=== PATIENT | male | born 1945 | race Caucasian/White ===

== ENCOUNTER 2020-09-29 23:44 | Emergency (ER) | payer MEDICARE, SELFPAY ==
--- NOTE | ~2020-09-29 | XR_ITS ---
EXAMINATION: XR chest 2V DATE: 09/30/2020 00:19 INDICATION: Weakness TECHNIQUE: AP and lateral views of the chest are obtained. COMPARISON: 05/20/2005 FINDINGS: The lungs are free of acute opacities. There is no pleural effusion or pneumothorax. The ca rdiomediastinal silhouette is normal. There is mild thoracic spondylosis. IMPRESSION: 1. No acute cardiopulmonary abnormality. Reviewed, dictated and finalized at location A.
[2020-09-29 23:42] VITALS: BP 146/60; PULSE 66; RESP 20; TEMP 38; O2SAT 100
--- NOTE | 2020-09-29 23:51 | ECG_ITS ---
Measurements Intervals [place] Rate: 65 P: 46 NH: 176 QRS: -5 QRSD: 108 T: 28 QT: 375 QTc: 390 Interpretive Statements SINUS RHYTHM BORDERLINE ST-T WAVE ABNORMALITY- INF/LAT LEADS BASELINE WANDER- I, II, AVR, AVF BORDERLINE ECG Electronically Signed On 09-30-2020 8:12:34 CDT by Vazquez Orourke D.O.
--- NOTE | 2020-09-29 23:54 | PC.NURSE ---
Patient's family member states patient has had difficulty with his blood sugars and is confused today. Patient arrives alert to person, place and day.
[2020-09-29 23:56] VITALS: PULSE 64; RESP 18
[2020-09-30] VITALS (13 sets, daily range): BP systolic 143–145; BP diastolic 69–76; PULSE 66–84; RESP 15–22; TEMP 36.9–37.2; O2SAT 98–99
--- NOTE | 2020-09-30 00:09 | PC.NURSE ---
Patient being taken to CT.
[2020-09-30] MEDS: SODIUM CHLORIDE 0.9% IV 1,000 ML 999 ML IV CONT (00:29)
[2020-09-30] MEDS: ACETAMINOPHEN 500 MG TABLET 1000 MG PO (00:29)
[2020-09-30 00:54] LABS: Basophils Percent Auto 0.4 % (0.2-1.2); Eosinophils Absolute Auto 0.9 K/mm3 (0-0.3); Eosinophils Percent Auto 10.4 % (0-4.4); Hematocrit 33.8 % (42.0-52.0); Immature Granulocyte Absolute 0.05 K/mm3 (0.00-0.031); Immature Granulocyte Percent A 0.6 % (0-0.5); Lymphocytes Absolute Auto 0.57 K/mm3 (0.9-3.2); Lymphocytes Percent Auto 6.9 % (18.3-44.2); Mean Corpuscular HGB Conc 32.5 g/dl (32-36); Mean Corpuscular Volume 92.1 fl (80-100); Mean Platelet Volume 11.1 fl (7.4-10.4); Monocytes Absolute Auto 0.9 K/mm3 (0.1-0.6); Monocytes Percent Auto 10.3 % (2.6-8.5); Neutrophils Absolute Auto 5.9 K/mm3 (1.3-6.7); Neutrophils Percent Auto 71.4 % (45.5-73.1); Platelet Count Result 206 k/mm3 (150-375); Red Blood Count 3.67 M/mm3 (4.6-6.20); Red Cell Distribution Width 12.9 % (11.5-14.5); White Blood Count 8.2 K/mm3 (4.5-10.0)
[2020-09-30 01:07] LABS: Anion Gap 11 mmol/L (8-16); Blood Urea Nitrogen 23 mg/dL (9-20); Calcium 8.9 mg/dL (8.4-10.2); Carbon Dioxide 25 mmol/L (22-30); Chloride 102 mmol/L (98-107); Estimated CRCL calculation 66 ml/min; Estimated Glomerular Filt Rate 59; Glucose 96 mg/dL (75-110); Potassium 4.3 mmol/L (3.4-5.0); Sodium 138 mmol/L (137-145)
[2020-09-30 01:23] LABS: Add Urine Microscopic? YES; Appearance Urine Clear (Clear); Bacteria Urine Trace /hpf; Bilirubin Urine Negative (Negative); Color Urine Yellow (Yellow); Glucose Urine UA Negative (Negative); Ketones Urine Negative (Negative); Leukocyte Esterase Ur Trace LEU/UL (Negative); Mucus Urine Rare /lpf; Nitrate Urine Negative (Negative); Protein Urine 1+ mg/dL (Negative); RBC Urine 0-2 /hpf (0-2); Specific Grav Ur 1.014 (1.001-1.035); Squamous Epithelial Cell Urine Rare /hpf (Few); Urobilinogen Urine Negative mg/dL (<2.0)
[2020-09-30 01:24] LABS: Blood Urine Negative (Negative)
--- NOTE | 2020-09-30 02:44 | PC.NURSE ---
Patient stood and ambulated a few steps with assist. Patient's daughter states patient did about the same as he does at home. ERP notified.
--- NOTE | 2020-09-30 02:46 | ED.WEAKNESS ---
HPI - Weakness General Chief complaint: Weakness Stated complaint: weakness Time Seen by Provider: 09/29/20 23:58 History of Present Illness HPI Narrative: Patient is a 75-year-old male who presents ER with weakness. Daughter called an ambulance bring patient here because twice during the day his legs became weak and buckled on him causing him to fall. One point he fell sliding down a wall. Did not strike his head or lose consciousness. Yesterday patient went and had a flu vaccine. Patient is found to be febrile here. She has no complaints of infection. Daughters note she has had a mild cough. No known Covid contacts. He has not left the house with exception to go to the doctor yesterday. 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 He was started on Keflex. Patient still reports prior to arrival here patient was very tired and not able to communicate well. No focal weakness or dysarthria. Related Data Home Medications Medication Instructions Recorded Confirmed ascorbic acid (vitamin C) 1,000 mg 1 gm PO DAILY 11/03/19 05/04/20 tablet aspirin 81 mg tablet,delayed 81 mg PO DAILY 11/03/19 05/04/20 release atorvastatin 20 mg tablet 20 mg PO DAILY 11/03/19 05/04/20 calcium carbonate 600 mg calcium 600 mg PO DAILY 11/03/19 05/04/20 (1,500 mg) tablet cholecalciferol (vitamin D3) 25 1,000 unit PO DAILY 11/03/19 05/04/20 mcg (1,000 unit) capsule digoxin 125 mcg (0.125 mg) tablet 125 mcg PO DAILY 11/03/19 05/04/20 insulin aspart U-100 100 unit/mL 35 unit SUB-Q TID ml 11/03/19 05/04/20 (3 mL) subcutaneous pen insulin glargine U-300 conc 300 114 unit SUB-Q DAILY ml 11/03/19 05/04/20 unit/mL (3 mL) subcutaneous pen metformin 1,000 mg tablet 500 mg PO BID tablet 11/03/19 05/04/20 omega-3 fatty acids 1,000 mg 1,000 mg PO DAILY 11/03/19 05/04/20 capsule ropinirole 0.25 mg tablet 0.25 mg PO ONCE tablet 11/03/19 05/04/20 warfarin 4 mg tablet 4 mg PO DAILY 11/03/19 05/04/20 Allergies Allergy/AdvReac Type Severity Reaction Status Date / Time No Known Allergies Allergy Unknown Verified 09/29/20 23:56 Review of Systems Review of Systems: All systems reviewed & are unremarkable except as noted in HPI and below Constitutional: Constitutional: Denies chills, Reports fever(s) and Reports weakness ENT: Denies nasal congestion and Denies sore throat Respiratory: Respiratory: Reports cough, Denies dyspnea and Denies wheezing Musculoskeletal: Musculoskeletal: Denies arthralgias and Denies joint swelling Comments: Missing toenail left great toe. PMFSH Past Medical History Medical History (Updated 09/30/20 @ 02:53 by Bogdan Mosqueda MD) A-fib Diabetic retinopathy associated with type 2 diabetes mellitus History of CVA (cerebrovascular accident) Hypertension associated with stage 3 chronic kidney disease due to type 2 diabetes mellitus Mixed hyperlipidemia Type 2 diabetes mellitus with diabetic neuropathy, with long-term current use of insulin Surgical History Surgical History (Updated 04/27/20 @ 13:00 by Sabina Carrera MD) History of eye enucleation History of eye removal Hx of tonsillectomy Family History Family History (System 04/27/20 @ 09:08 by Argelia Mejias) Other Diabetes mellitus Family history of Alzheimer's disease Family history of lung disease Hypertension Malignant neoplasm of prostate Social History Social History (System 04/27/20 @ 09:08 by Argelia Mejias) Smoking status: Never smoker Alcohol intake: never Exam Narrative: Exam Narrative: GENERAL: Well-appearing, well-nourished, and in no acute distress. HEAD: Normocephalic, atraumatic. ENT: Mucous membranes moist. CHEST: Clear to auscultation. No respiratory distress. HEART: Regular rate and rhythm. Normal peripheral pulses. ABDOMEN: Soft, nontender, nondistended. EXTREMITIES: Normal range of motion. Left great toe missing toenail. There is slight red
[2020-09-30 02:59] LABS: Glucose Point of Care 103 (65-105)
== END 2020-09-30 03:14 | disposition home or self-care (01) ==
PROVIDERS: Emergency Provider Emergency Medicine; PCP Family Medicine
DX: L03.032 Cellulitis of left toe (principal); E11.319 Type 2 diabetes mellitus with unspecified diabetic retinopathy without macular edema; E11.22 Type 2 diabetes mellitus with diabetic chronic kidney disease; E11.40 Type 2 diabetes mellitus with diabetic neuropathy, unspecified; I12.9 Hypertensive chronic kidney disease with stage 1 through stage 4 chronic kidney disease, or unspecified chronic kidney disease; N18.30 Chronic kidney disease, stage 3 unspecified; Z79.82 Long term (current) use of aspirin; Z79.4 Long term (current) use of insulin; Z79.01 Long term (current) use of anticoagulants; I48.91 Unspecified atrial fibrillation; R94.31 Abnormal electrocardiogram [ECG] [EKG]
CPT/HCPCS: 36415; 71046; 80048; 81001; 85025; 87086; 93005; 96360; 99283; A9270; J7030

== ENCOUNTER 2020-10-12 09:34 | Outpatient (NON) | payer MEDICARE, SELFPAY ==
[2020-10-13 14:52] LABS: SARS-CoV-2 RNA PCR Positive
== END 2020-10-12 09:35 ==
LOC: ANHCOVIDDT 09:36
PROVIDERS: PCP Family Medicine; Visit Provider Physician Assistant Medical
DX: U07.1 COVID-19 (principal)
CPT/HCPCS: 87635; C9803; U0003

== ENCOUNTER 2021-06-27 08:15 | Outpatient (CLI) | payer MEDICARE, SELFPAY ==
--- NOTE | ~2021-06-27 | US_ITS ---
EXAMINATION: US arterial ankle brachial ind DATE: 06/27/2021 08:50 INDICATION: Peripheral vascular disease. TECHNIQUE: Segmental pressures and plethysmographic and Doppler waveforms of the brachial and lower e xtremity arteries were obtained. COMPARISON: None. FINDINGS: Right and left brachial artery pressures of 166 mm Hg and 166 mm Hg, respectively, are concordant (no rmal difference <= 30 mmHg). The right ankle-brachial index is unable to be obtained due to inability to occlude the vessels at th e right ankle. The right great toe-brachial index (TBI) is 0.67 (normal >= 0.65). Arterial Doppler wa veforms are biphasic with brisk systolic upstrokes at both the right dorsalis pedis and posterior tib ial arteries. The left BECKA is unable to be obtained due to inability to occlude the vessels at the left ankle. The left TBI is 0.71. Arterial Doppler waveforms are biphasic with brisk systolic upstrokes at both the l eft posterior tibial and dorsalis pedis arteries. IMPRESSION: 1. No significant arterial occlusive disease to either lower limb with normal bilateral TBI's. Reviewed, dictated and finalized at location A. IMPRESSION: 1. No significant arterial occlusive disease to either lower limb with normal b ilateral TBI's.
== END 2021-06-27 08:16 | disposition home or self-care (01) ==
LOC: ANHIMG 08:19
PROVIDERS: PCP Family Medicine; Visit Provider Family Medicine
DX: I73.9 Peripheral vascular disease, unspecified (principal)
CPT/HCPCS: 93922

== ENCOUNTER 2023-07-24 09:27 | Outpatient (CLI) | payer MEDICARE, SELFPAY ==
--- NOTE | ~2023-07-24 | CT_ITS ---
EXAMINATION: CT abdomen pelvis w con DATE: 07/24/2023 10:05 INDICATION: Abnormal liver serum enzymes TECHNIQUE: Computed tomography (CT) of the abdomen and pelvis was performed with 100 cc Omnipaque 350 intravenous contrast. The dose-length product was 1764.34 mGy-cm. Automated exposure control and ite rative reconstruction technique were employed. COMPARISON: CT dated 09/20/2004. FINDINGS: There is dependent atelectasis. No endobronchial lesions. Heart size normal. There is ather osclerosis of the aorta and coronary arteries. No aneurysm. No lymphadenopathy. Prostate gland is enl arged. Bladder is moderately distended. Fatty infiltration of the liver. Gallbladder is distended. Th e spleen, pancreas, adrenal glands and kidneys are unremarkable. Nonobstructive bowel gas pattern. No free air or free fluid. No lymphadenopathy. No abnormal pelvic masses or fluid collections. Mild ost eoarthritis of the hips. Mild lower thoracic and lumbar spondylosis. IMPRESSION: 1. Fatty infiltration of the liver. 2: Mild gallbladder distention, nonspecific. 3: Enlarged prostate gland with moderate bladder distention, suspicious for bladder outlet obstructi on. Reviewed, dictated and finalized at location L. IMPRESSION: 1. Fatty infiltration of the liver. 2: Mild gallbladder distention, nonspecific. 3: Enlarged prostate gland with moderate bladder distention, suspicious for bl adder outlet obstruction.
[2023-07-24 09:56] LABS: Estimated Glomerular Filt Rate 46
== END 2023-07-24 09:28 | disposition home or self-care (01) ==
PROVIDERS: PCP Family Medicine; Visit Provider Physician Assistant
DX: R74.8 Abnormal levels of other serum enzymes (principal); R10.9 Unspecified abdominal pain; R19.7 Diarrhea, unspecified; K76.0 Fatty (change of) liver, not elsewhere classified; N40.0 Benign prostatic hyperplasia without lower urinary tract symptoms
CPT/HCPCS: 74177; Q9967

== ENCOUNTER 2023-08-27 00:43 | Day surgery (SDC) | payer MEDICARE, SELFPAY ==
[2023-08-21 10:59] VITALS: BMI 40.3
[2023-08-27 09:12] VITALS: BP 135/44; PULSE 63; RESP 20; TEMP 36.3; O2SAT 95
[2023-08-27] MEDS: LACTATED RINGERS 1,000 ML 150 ML IV CONT (09:25)
[2023-08-27 09:27] LABS: Glucose Point of Care 85 mg/dl (65-105)
--- NOTE | 2023-08-27 09:29 | WPDANESEPPF ---
Anes - Initial Pre Proc Eval Procedure: Operation Date: 08/27/23 10:00 Proposed Procedures p Colonoscopy - Lewis Mclaughlin MD Date/Time: 08/27/23 09:29 Surgeon: Lewis Mclaughlin MD Pre Op Diagnosis: diarrhea, unspecified Patient Data Age: 78 Gender: M Height: 1.78 m Weight: 122 kg Last Vital Signs Temp 97.3 F L 08/27/23 09:12 Pulse 63 08/27/23 09:12 Resp 20 08/27/23 09:12 BP 135/44 L 08/27/23 09:12 Pulse Ox 95 08/27/23 09:12 O2 Del Method Room Air 08/27/23 09:12 Allergies Allergy/AdvReac Type Severity Reaction Status Date / Time No Known Allergies Allergy Unknown Verified 08/27/23 09:07 Home Medications Medication Instructions Recorded Confirmed Type ascorbic acid (vitamin C) 1,000 mg 1 gm PO DAILY 11/03/19 08/27/23 History tablet aspirin 81 mg tablet,delayed 81 mg PO DAILY 11/03/19 08/27/23 History release (Adult Low Dose Aspirin) atorvastatin 20 mg tablet 20 mg PO DAILY 11/03/19 08/27/23 History calcium carbonate 600 mg calcium 600 mg PO DAILY 11/03/19 08/27/23 History (1,500 mg) tablet (Calcium) digoxin 125 mcg (0.125 mg) tablet 125 mcg PO DAILY 11/03/19 08/27/23 History insulin aspart U-100 100 unit/mL 35 unit subcut TID 11/03/19 08/27/23 History (3 mL) subcutaneous pen (Novolog FlexPen U-100 Insulin aspart) metformin 1,000 mg tablet 500 mg PO BID 11/03/19 08/27/23 History warfarin 4 mg tablet 4 mg PO DAILY 11/03/19 08/27/23 History buspirone 10 mg tablet 5 mg PO BID #90 tabs 05/04/20 08/27/23 Rx alogliptin 25 mg tablet 25 mg PO DAILY 12/06/20 08/27/23 History cholecalciferol (vitamin D3) 25 2,000 unit PO DAILY 12/06/20 08/27/23 History mcg (1,000 unit) capsule lisinopril 20 mg tablet 20 mg PO DAILY 12/06/20 08/27/23 History tramadol 50 mg tablet 50 mg PO Q6H PRN Pain, Moderate 12/06/20 08/27/23 History pregabalin 50 mg capsule 50 mg PO TID 07/04/21 08/27/23 History omega-3 fatty acids 1,000 mg 1,500 mg PO DAILY 10/08/21 08/27/23 History capsule (Fish Oil Concentrate) ropinirole 0.25 mg tablet 0.5 mg PO ONCE 10/08/21 08/27/23 History sotalol 80 mg tablet See Rx Instructions .Route 04/30/22 08/27/23 Rx .COMPLEX #180 tabs empagliflozin 25 mg tablet 25 mg PO DAILY 10/09/22 08/27/23 History (Jardiance) insulin glargine U-300 conc 300 160 unit subcut DAILY 10/09/22 08/27/23 History unit/mL (3 mL) subcutaneous pen (Toujeo Max U-300 SoloStar) mecobalamin (vitamin B12) 1,000 2,000 mcg PO DAILY 10/09/22 08/27/23 History mcg chewable tablet fenofibrate 160 mg tablet See Rx Instructions .Route 01/27/23 08/27/23 Rx .COMPLEX #90 tabs duloxetine 60 mg capsule,delayed See Rx Instructions .Route 04/04/23 08/27/23 Rx release .COMPLEX #90 caps Laboratory Tests 08/27/23 09:23 POC Capillary Glucose 85 mg/dl (65-105) Patient hx anesthesia problems: none Family hx anesthesia problems: none Results Review: All pre-operative results and documents have been reviewed as part of the pre-operative evaluation. [facility] Past Medical History Medical History A-fib Anemia due to stage 3 chronic kidney disease Diabetic retinopathy associated with type 2 diabetes mellitus History of CVA (cerebrovascular accident) Hypertension associated with stage 3 chronic kidney disease due to type 2 diabetes mellitus Mixed hyperlipidemia Type 2 diabetes mellitus with diabetic neuropathy, with long-term current use of insulin Surgical History Surgical History History of eye enucleation History of eye removal Hx of tonsillectomy (~1989) Family History Family History Other Diabetes mellitus Family history of Alzheimer's disease Family history of lung disease Hypertension Malignant neoplasm of prostate Social History Social History (Reviewed 08/05/23 @ 10:08 by Leonard
--- NOTE | 2023-08-27 09:41 | WPDHPUPDATE1 ---
History and Physical Update Update Date/Time: 08/27/23 09:41 History and Physical has been reviewed, including an updated exam of the patient. There are NO changes in the patient's condition. Risks, benefits, and alternatives have been discussed and questions answered. Patient agrees to proceed with procedure.
[2023-08-27 10:09] VITALS: BP 109/49; PULSE 51; RESP 20; O2SAT 95
[2023-08-27 10:28] LABS: Glucose Point of Care 71 mg/dl (65-105)
== END 2023-08-27 10:51 | disposition home or self-care (01) ==
PROVIDERS: PCP Family Medicine; Visit Provider Internal Medicine Gastroenterology
PROC: 0DJD8ZZ Inspection of Lower Intestinal Tract, Via Natural or Artificial Opening Endoscopic (ICD-10-PCS; CPT 45378; principal; 2023-08-27 10:00)
DX: Z12.11 Encounter for screening for malignant neoplasm of colon (principal); K64.8 Other hemorrhoids; R19.7 Diarrhea, unspecified; I48.91 Unspecified atrial fibrillation; I12.9 Hypertensive chronic kidney disease with stage 1 through stage 4 chronic kidney disease, or unspecified chronic kidney disease; E11.22 Type 2 diabetes mellitus with diabetic chronic kidney disease; N18.30 Chronic kidney disease, stage 3 unspecified; Z86.73 Personal history of transient ischemic attack (TIA), and cerebral infarction without residual deficits; E78.2 Mixed hyperlipidemia; E11.40 Type 2 diabetes mellitus with diabetic neuropathy, unspecified; Z79.82 Long term (current) use of aspirin; Z79.4 Long term (current) use of insulin; Z79.84 Long term (current) use of oral hypoglycemic drugs; Z79.01 Long term (current) use of anticoagulants; E66.9 Obesity, unspecified; Z68.38 Body mass index [BMI] 38.0-38.9, adult
CPT/HCPCS: 45380; 82948; 88305; J7120

== ENCOUNTER → 2023-10-09 11:24 | Outpatient (CLI) | payer MEDICARE, SELFPAY ==
--- NOTE | ~2023-10-09 | XR_ITS ---
Clinical Indication: Cough PA and lateral views of the chest: Comparison: 09/30/2020 Findings: There is central venous congestive change, with possible minimal bibasilar pulmonary edema. Possible minimal left pleural effusion.. Cardiomediastinal silhouette is within normal limits. Bone s and soft tissues are unremarkable. Impression: Central congestive change and possible minimal bibasilar pulmonary edema. Possible minimal left pleural effusion. Reviewed, dictated and finalized at location M. AGE PROGRAM DIRECTOR Impression: Central congestive change and possible minimal bibasilar pulmonary edema. Possible minimal left pleural effusion.
== END ==
PROVIDERS: PCP Emergency Medicine; Visit Provider Emergency Medicine
DX: R05.9 Cough, unspecified (principal); J98.8 Other specified respiratory disorders
CPT/HCPCS: 71046